=== PATIENT | female | born 1940 | race Caucasian/White ===

== ENCOUNTER → 2016-11-22 | Outpatient (CLI) | payer OTHER | LOC: BHFA 14:00 | PROVIDERS: ATTEND Internal Medicine Interventional Cardiology | DX: I44.7 Left bundle-branch block, unspecified (principal); I47.1 Supraventricular tachycardia; I07.1 Rheumatic tricuspid insufficiency; R00.2 Palpitations ==

== ENCOUNTER → 2016-11-29 | Outpatient (CLI) | payer OTHER | LOC: BHFA 10:45 | PROVIDERS: ATTEND Internal Medicine Cardiovascular Disease | DX: R00.2 Palpitations (principal) ==